=== PATIENT | male | born 1990 | race Caucasian/White ===

== ENCOUNTER 2017-04-03 01:28 | Emergency (ER) | payer SELFPAY ==
[~2017-04-03] VITALS: Ht 180.3 cm; Wt 60.0 kg
[2017-04-03 01:30] VITALS: BP 126/74; PULSE 80; RESP 16; TEMP 97.6; O2SAT 99
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
[2017-04-03 02:35] LABS: AUTOMATED NEUTROPHIL # 4.4 TH/MM3 (1.8-7.7); BASOPHIL # 0.1 TH/MM3 (0-0.2); BASOPHIL % 0.7 % (0.0-2.0); EOSINOPHIL # 0.4 TH/MM3 (0-0.4); EOSINOPHIL % 4.5 % (0.0-4.0); HEMATOCRIT 44.5 % (39.0-51.0); HEMOGLOBIN 15.1 GM/DL (13.0-17.0); LYMPH % 31.2 % (9.0-44.0); LYMPHOCYTE # 2.5 TH/MM3 (1.0-4.8); MEAN CORPUSCULAR HEMOGLOBIN 31.1 PG (27.0-34.0); MEAN CORPUSCULAR HGB CONC 33.8 % (32.0-36.0); MEAN PLATELET VOLUME 7.7 FL (7.0-11.0); MONOCYTE # 0.7 TH/MM3 (0-0.9); NEUT % 54.6 % (16.0-70.0); PLATELET COUNT 255 TH/MM3 (150-450); RED BLOOD COUNT 4.84 MIL/MM3 (4.50-5.90); RED CELL DISTRIBUTION WIDTH 12.9 % (11.6-17.2)
[2017-04-03 03:05] LABS: ALBUMIN 4.5 GM/DL (3.4-5.0); ALT (GPT) 58 U/L (12-78); AST (GOT) 20 U/L (15-37); BICARBONATE 28.7 MEQ/L (21.0-32.0); BLOOD UREA NITROGEN 18 MG/DL (7-18); CALCIUM 8.9 MG/DL (8.5-10.1); CHLORIDE 106 MEQ/L (98-107); CREATININE 0.92 MG/DL (0.60-1.30); GLOMERULAR FILTRATION RATE 100 ML/MIN (>89); GLUCOSE,RANDOM 85 MG/DL (74-106); SODIUM (NA) 141 MEQ/L (136-145)
[2017-04-03 03:08] LABS: ALKALINE PHOSPHATASE 56 U/L (45-117); TOTAL BILIRUBIN ADULT 0.4 MG/DL (0.2-1.0); TOTAL PROTEIN 7.3 GM/DL (6.4-8.2)
[2017-04-03 03:56] VITALS: BP 144/78; PULSE 79; RESP 16; TEMP 98.7; O2SAT 98
[2017-04-03 06:49] VITALS: BP 99/57; PULSE 68; RESP 16; TEMP 98.4; O2SAT 98
[2017-04-03 11:30] VITALS: BP 125/61; PULSE 76; RESP 18; O2SAT 100
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
--- NOTE | 2017-04-03 14:59 | PD ---
HPI Chief Complaint: Suicide Ideation/Attempt Travel History International Travel<30 days: No Contact w/Intl Traveler<30days: No Traveled to known affect area: No PFSH Past Medical History Medical History: Denies Significant Hx Diminished Hearing: No Tetanus Vaccination: Unknown Influenza Vaccination: No Past Surgical History Oral Surgery: Yes (root canal) Social History Alcohol Use: Yes (occaionally) Tobacco Use: Yes Substance Use: Yes (marijaunia occasionally) Allergies-Medications (Allergen,Severity, Reaction): Coded Allergies: No Known Allergies (Unverified , 04/03/17) Reported Meds & Prescriptions Reported Meds & Active Scripts Active No Active Prescriptions or Reported Medications Data Data Last Documented VS Vital Signs Date Time Temp Pulse Resp B/P (MAP) Pulse Ox O2 Delivery O2 Flow Rate FiO2 04/03/17 11:30 76 18 125/61 (82) 100 Room Air 04/03/17 06:49 98.4 Orders Orders Complete Blood Count With Diff (04/03/17 01:43) Comprehensive Metabolic Panel (04/03/17 01:43) Psych Screen (04/03/17 01:43) Drug Screen, Random Urine (04/03/17 01:43) Alcohol (Ethanol) (04/03/17 01:43) Diet Regular Basic (04/03/17 Breakfast) Diet Regular Basic (04/03/17 Lunch) Labs Laboratory Tests Test 04/03/17 02:20 04/03/17 08:05 White Blood Count 8.0 TH/MM3 Red Blood Count 4.84 MIL/MM3 Hemoglobin 15.1 GM/DL Hematocrit 44.5 % Mean Corpuscular Volume 92.0 FL Mean Corpuscular Hemoglobin 31.1 PG Mean Corpuscular Hemoglobin Concent 33.8 % Red Cell Distribution Width 12.9 % Platelet Count 255 TH/MM3 Mean Platelet Volume 7.7 FL Neutrophils (%) (Auto) 54.6 % Lymphocytes (%) (Auto) 31.2 % Monocytes (%) (Auto) 9.0 % Eosinophils (%) (Auto) 4.5 % Basophils (%) (Auto) 0.7 % Neutrophils # (Auto) 4.4 TH/MM3 Lymphocytes # (Auto) 2.5 TH/MM3 Monocytes # (Auto) 0.7 TH/MM3 Eosinophils # (Auto) 0.4 TH/MM3 Basophils # (Auto) 0.1 TH/MM3 CBC Comment DIFF FINAL Differential Comment Blood Urea Nitrogen 18 MG/DL Creatinine 0.92 MG/DL Random Glucose 85 MG/DL Total Protein 7.3 GM/DL Albumin 4.5 GM/DL Calcium Level 8.9 MG/DL Alkaline Phosphatase 56 U/L Aspartate Amino Transf (AST/SGOT) 20 U/L Alanine Aminotransferase (ALT/SGPT) 58 U/L Total Bilirubin 0.4 MG/DL Sodium Level 141 MEQ/L Potassium Level 3.7 MEQ/L Chloride Level 106 MEQ/L Carbon Dioxide Level 28.7 MEQ/L Anion Gap 6 MEQ/L Estimat Glomerular Filtration Rate 100 ML/MIN Ethyl Alcohol Level LESS THAN 3 MG/DL Urine Opiates Screen NEG Urine Barbiturates Screen NEG Urine Amphetamines Screen NEG Urine Benzodiazepines Screen NEG Urine Cocaine Screen NEG Urine Cannabinoids Screen POS MDM Diagnosis Primary Impression: Suicidal ideation Referrals: [facility] (Out patient) call for appointment Medication Management Patient Instructions: General Instructions, Stress (ED) Departure Forms: Tests/Procedures Scripts No Active Prescriptions or Reported Meds Disposition: 01 DISCHARGE HOME Latonia Amato Apr 03, 2017 14:59
--- NOTE | 2017-04-03 15:01 | PD ---
Physical Exam Date Seen by Provider: Apr 03, 2017 Time Seen by Provider: 15:00 Data Data Last Documented VS Vital Signs Date Time Temp Pulse Resp B/P (MAP) Pulse Ox O2 Delivery O2 Flow Rate FiO2 04/03/17 11:30 76 18 125/61 (82) 100 Room Air 04/03/17 06:49 98.4 Orders Orders Complete Blood Count With Diff (04/03/17 01:43) Comprehensive Metabolic Panel (04/03/17 01:43) Psych Screen (04/03/17 01:43) Drug Screen, Random Urine (04/03/17 01:43) Alcohol (Ethanol) (04/03/17 01:43) Diet Regular Basic (04/03/17 Breakfast) Diet Regular Basic (04/03/17 Lunch) Labs Laboratory Tests Test 04/03/17 02:20 04/03/17 08:05 White Blood Count 8.0 TH/MM3 Red Blood Count 4.84 MIL/MM3 Hemoglobin 15.1 GM/DL Hematocrit 44.5 % Mean Corpuscular Volume 92.0 FL Mean Corpuscular Hemoglobin 31.1 PG Mean Corpuscular Hemoglobin Concent 33.8 % Red Cell Distribution Width 12.9 % Platelet Count 255 TH/MM3 Mean Platelet Volume 7.7 FL Neutrophils (%) (Auto) 54.6 % Lymphocytes (%) (Auto) 31.2 % Monocytes (%) (Auto) 9.0 % Eosinophils (%) (Auto) 4.5 % Basophils (%) (Auto) 0.7 % Neutrophils # (Auto) 4.4 TH/MM3 Lymphocytes # (Auto) 2.5 TH/MM3 Monocytes # (Auto) 0.7 TH/MM3 Eosinophils # (Auto) 0.4 TH/MM3 Basophils # (Auto) 0.1 TH/MM3 CBC Comment DIFF FINAL Differential Comment Blood Urea Nitrogen 18 MG/DL Creatinine 0.92 MG/DL Random Glucose 85 MG/DL Total Protein 7.3 GM/DL Albumin 4.5 GM/DL Calcium Level 8.9 MG/DL Alkaline Phosphatase 56 U/L Aspartate Amino Transf (AST/SGOT) 20 U/L Alanine Aminotransferase (ALT/SGPT) 58 U/L Total Bilirubin 0.4 MG/DL Sodium Level 141 MEQ/L Potassium Level 3.7 MEQ/L Chloride Level 106 MEQ/L Carbon Dioxide Level 28.7 MEQ/L Anion Gap 6 MEQ/L Estimat Glomerular Filtration Rate 100 ML/MIN Ethyl Alcohol Level LESS THAN 3 MG/DL Urine Opiates Screen NEG Urine Barbiturates Screen NEG Urine Amphetamines Screen NEG Urine Benzodiazepines Screen NEG Urine Cocaine Screen NEG Urine Cannabinoids Screen POS MDM Supervised Visit with KORY: No Narrative Course 26-year-old male presents to the ED under Rawls act for suicidal urination. He was initially evaluated by Ryan Archibald and medically cleared. He was then evaluated by Dr. Fitzpatrick, psychiatry. Dr. Fitzpatrick lifted the Rawls act. He is diagnosed with dysthymic disorder and marijuana abuse. Patient is instructed to follow-up with [facility] on outpatient basis. He is stable and discharged home. Diagnosis Primary Impression: Suicidal ideation Additional Impressions: Dysthymic disorder Marijuana abuse Referrals: [facility] (Out patient) call for appointment Medication Management Patient Instructions: General Instructions, Stress (ED) Departure Forms: Tests/Procedures Scripts No Active Prescriptions or Reported Meds Disposition: 01 DISCHARGE HOME Latonia Amato Apr 03, 2017 15:01
== END 2017-04-03 16:08 | disposition home or self-care (01) ==
LOC: NEPJ 01:28
DX: R45.851 Suicidal ideations (principal); F34.1 Dysthymic disorder; F12.10 Cannabis abuse, uncomplicated; Z72.0 Tobacco use
CPT/HCPCS: 80053; 80307; 85025; 99283